=== PATIENT | female | born 1960 | race Two or more races ===

== ENCOUNTER 2017-05-11 05:32 | Emergency (ER) | payer MEDICAID ==
[~2017-05-11] VITALS: Ht 162.6 cm; Wt 58.7 kg
[2017-05-11 05:37] VITALS: BP 165/98
[2017-05-11] MEDS ORDERED: FLUORESCEIN OPHTHALMIC 1 MG STRIP ONE (05:54)
[2017-05-11] MEDS ORDERED: PROPARACAINE OPHTH 0.5%, 15ML ONE (05:54)
== END 2017-05-11 06:38 | disposition home or self-care (01) ==
LOC: ED 06:35
DX: S05.02XA Injury of conjunctiva and corneal abrasion without foreign body, left eye, initial encounter (principal); X58.XXXA Exposure to other specified factors, initial encounter; Y93.89 Activity, other specified; Y92.89 Other specified places as the place of occurrence of the external cause; Y99.8 Other external cause status
CPT/HCPCS: 99283